=== PATIENT | male | born 1980 | race Caucasian/White ===

== ENCOUNTER 2025-03-30 19:08 | Emergency (ER) | payer OTHER, SELFPAY ==
[2025-03-30 19:11] VITALS: BP 143/82
[2025-03-30 19:37] LABS: Hematocrit 39.0 % (39.0-52.0); Hemoglobin 13.5 g/dL (13.0-18.0); Mean Corp Hgb Conc. 34.6 g/dL (33.0-37.0); Mean Corpuscular Volume 96.1 fL (80.0-94.0); Nucleated Red Blood Cells % 0 % (-); Platelet Count 215 10^3/uL (130-400); Red Cell Dist. Width 12.4 % (11.5-14.5)
[2025-03-30 19:46] LABS: ALT (SGPT) 29 U/L (0-50); AST (SGOT) 31 U/L (17-59); Albumin 4.5 g/dl (3.5-5.0); Alkaline Phosphatase 61 U/L (38-126); Calcium 9.3 mg/dl (8.4-10.2); Carbon Dioxide 28 mmol/L (22-30); Chloride 103 mmol/L (98-107); Glucose 109 mg/dl (70-99); Potassium 4.3 mmol/L (3.5-5.1); Sodium 136 mmol/L (135-145); Total Protein 7.3 g/dl (6.3-8.2); eGFR > 60.00
[2025-03-30 19:56] LABS: Blood Urea Nitrogen 19 mg/dl (9-20)
[2025-03-30 19:58] LABS: Troponin I < 0.012 ng/ml
--- NOTE | 2025-03-30 22:29 | ED.GENMED ---
History of Present Illness
General
Chief Complaint: Chest Pain
Source: patient
Exam Limitations: none
Time Seen by Provider: 03/30/25 22:28
History of Present Illness
History of Present Illness:
44-year-old male with a episode of chest tightness some shortness of breath and nausea after exercising early this morning. Has not felt quite right all day although the symptoms were at their maximum for 20 to 30 minutes. No pleuritic pain. No
shearing back pain. No history of similar episodes.
Past History
Past History
ED Past Medical History: Other (Lyme disease)
Social History
Tobacco: Non-smoker
Personal: Single
Employment: Employed
Review of Systems
Review of Systems
All Other Systems: Not applicable
Constitutional: Denies fever
Respiratory: Reports no symptoms
ABD/GI: Reports no symptoms
Phy Exam
Physical Exam
Physical Exam:
GENERAL: Alert and oriented in no apparent distress
EYE: Orbits normal.
NECK: Supple, no significant adenopathy.
ENT: Pharynx without erythema
CARDIAC: Regular rate and rhythm without any obvious murmurs.
LUNGS: Clear breath sounds,normal
ABDOMEN: Soft, without focal tenderness or distention
NEUROLOGICAL: Alert and oriented , grossly non-focal
SKIN: Warm and dry, no rash or lesion, no discoloration, skin intact.
MUSCULOSKELETAL: No edema,no deformity.Good color
PSYCH: Normal and appropriate interaction.
Course
Orders/Labs/Results
Orders:
Orders
03/30/25 19:11
EKG [Electrocardiogram (*1)] Urgent
Reason for Study: Chest Pain
EKG- Treatment ONCE
03/30/25 19:25
Complete Blood Count/With Diff Urgent
Comprehensive Metabolic Panel Urgent
Troponin I Urgent
03/30/25 20:46
Chest [CR Chest - 2 Views ] Urgent
Comment:
Reason For Exam: chest pain
03/30/25 22:39
CT Chest PE Study Urgent
Comment:
Reason For Exam: Chest pain short of breath nausea
IV Insert/Care/Rem.- Treatment PRN
0.9% Sodium Chloride 500 ml [Nss] 500 ml IV BOLUS
03/30/25 22:49
Electrocardiogram (*1) Stat
Reason for Study: Other
Other Reason for Exam: chest pain
EKG- Treatment ONCE
03/30/25 23:11
Troponin I Urgent
03/31/25 00:48
Aspirin Chewable [Low Strength Aspirin] 324 mg PO NOW STA
Abnormal Lab Results
03/30/25
19:25
RBC 4.06 L 10^6/uL
(4.70-6.10)
MCV 96.1 H fL
(80.0-94.0)
MCH 33.3 H pg
(27.0-31.0)
Absolute Monos (auto) 0.8 H 10^3/uL
(0.1-0.6)
Monocytes % 10.6 H %
(1.7-9.3)
Glucose 109 H mg/dl
(70-99)
03/30/25 19:25
03/30/25 19:25
Vital Signs
Initial and Last Documented VS:
Initial Vital Signs
Temp Pulse Resp BP Pulse Ox
98.5 F 56 18 143/82 99
03/30/25 19:11 03/30/25 19:11 03/30/25 19:11 03/30/25 19:11 03/30/25 19:11
Last Documented Vital Signs
Temp Pulse Resp BP Pulse Ox
98.5 F 74 16 121/76 96
03/30/25 19:11 03/31/25 00:26 03/31/25 00:26 03/31/25 00:26 03/30/25 23:30
*Radiology
Radiology exam reviewed: preliminary read by ED provider (Negative chest x-ray) and radiology read reviewed (Negative CT chest)
*Pulse Oximetry
SaO2: 99
Oxygen Mode of Delivery: Room air
Patient hypoxic: no
*EKG
Interpreted by ED Provider?: Yes
Interpretation: abnormal
Heart Rate: 63
Rate: normal
Rhythm: sinus
[place]: normal axis
Interval: normal interval
QRS Pattern: normal QRS
Ischemia: non-specific ST changes
Update Note
Update Note:
0043... Patient essentially feels well at this time. However with previous stress test showing ischemia, nonspecific EKG changes, exertional symptoms and family history will hold overnight for cardiology to see in a.m.
ED Attending Note
-
Portions of this chart may have been created with voice recognition software.� Occasional wrong word or��sound alike� substitutions may have occurred due to the inherent limitations of voice recognition software.
Discharge Plan
Departure
Prescriptions:
No Action
No Current Medications
0
Referrals:
Omega Jacobo MD [Family Provider, Internal Medicine]
Interventions
Interventions:
*Risk Screen - Suicide Last Done: 03/30/25 19:11
*General Assessment Last Done: 03/30/25 19:11
*Neglect/Abuse Screening Last Done: 03/30/25 19:11
ED- Cardiac Assessment Last Done: 03/30/25 23:23
Discharge Date and Time
Print Language: IRISH
[2025-03-30 23:00] VITALS: BP 118/79
[2025-03-30] MEDS: NSS 500 IV (23:16)
[2025-03-30 23:46] LABS: Troponin I < 0.012 ng/ml
[2025-03-31] VITALS (12 sets, daily range): BP systolic 100–129; BP diastolic 64–91; BMI 25.0
[2025-03-31] MEDS: LOW STRENGTH ASPIRIN 324 MG PO (01:00)
--- NOTE | 2025-03-31 09:26 | CON.CAR ---
Addendum entered and electronically signed by Gabe Kumar MD 03/31/25 09:58:
I saw and examined the patient.
The resident's note was reviewed and I agree with the note.
Comment:
44-year-old man with bicuspid aortic valve, frequent PACs, and family history of coronary artery disease who presents for chest pain. Patient reports that yesterday after strength training at the gym, he had an episode of nonradiating chest
pressure and nausea that lasted for about 20 minutes. He then felt 'off' for the rest of the day. Finally presented to the ED at his 's recommendation. In the ER, labs were notable for negative troponin x 2. I personally reviewed his ECG
which shows normal sinus rhythm with PACs and T wave inversions in the inferolateral leads (slightly worse than prior). I also personally reviewed his CT PE which showed no pulmonary embolism, scant coronary artery calcification, and mild
calcification of his aortic valve. At the time of my interview, he is completely chest pain-free. His chest pain resolved while he was in the ER waiting room it has not recurred. He is a non-smoker. He has a family history of father with [place] in
his late 50s; paternal grandfather and uncle also had CAD. Of note, he had a stress echocardiogram and TTE in 2020. Stress echocardiogram showed no echocardiographic evidence of ischemia and ST depressions by ECG. TTE showed normal LVEF and
bicuspid aortic valve with mild aortic regurgitation.
Physical exam: Regular rate and rhythm, no murmurs, clear lungs, no lower extremity edema
Chest pain: Very low suspicion for ACS given age, lack of risk factors, and hours of symptoms with negative troponin x2. He is pain-free at this time. Given his family history of coronary artery disease, I would recommend updating a stress
echocardiogram as an outpatient. I have contacted our office to arrange this. We also discussed return precautions that would warrant ER evaluation.
Bicuspid aortic valve: Mild aortic regurgitation on echocardiogram in 2020. We should update this. Our office will arrange.
He is okay for discharge from a cardiology standpoint. We will arrange cardiovascular testing as above and follow-up in our office.
Original Note:
Consultation
Consultation Request
Date/Time Consultation Requested: 03/31/2025
Date/Time Consultation Performed: 03/31/2025
Requesting Provider: Antoine Hayes
Performing Provider: Gabe Kumar
Reason for Consultation: Chest Pain
Medical History
-
Chief Complaint: Chest pain
History of Present Illness:
Antoine is a 44 year old man with a past medical history of bicuspid aortic valve, PACs and PVCs on outpatient Holter Monitoring and normal TTE/Stress Echo in 2020 who presented with symptoms of chest pain/pressure.
he reports that he went to the gym in the morning of 03/30 and went about his usual workout without symptoms. Towards the end of the workout he developed central, nonradiating chest pressure/pain and nausea. The pain did not radiate. He had no
vomiting. There was no light headedness, dizziness, palpitations, syncope. He left the gym, went home, made and ate breakfast without issue, and continued about his work day. He reports that he felt some lingering discomfort in his chest throughout
the day, but was unsure whether it was genuinely there or if he may have just been nervous about it. He has no prior chest trauma. There was no pleuritic component. He spoke to his when she got home and they decided he should come to the ED for
further eval to be safe. He takes no medications and no special supplements other than protein powder. He has never used performance enhancing drugs. He has a strong family history of CAD (Father with CAD and stenting in 50s, uncle from [place] in
50s, grandfather had CAD/[place]). He smoked cigarettes in his 20-30s socially, and has not smoked in over 10 years. He drinks roughly 4 beers per week, usually socially and on weekends.
In the ED he was given IVF and Aspirin 324mg. ECG showed sinus bradycardia with sinus arrhythmia. Troponins were negative. CBC and CMP were unremarkable. CXR and CT PE study showed no evidence of PE.
Patient was resting comfortably in bed without acute complaints when seen. He reports the chest discomfort subsided completely while in the waiting room prior to getting a room in the ED.
Past Medical History
Past Medical History: Other (see hpi)
Past Surgical History: Orthopedic (R knee)
Social History
Tobacco: Former Smoker
Alcohol: Occasional
Drug: None
Personal:
Living: With Family
Employment: Employed
Family History
Family History: Early CAD and CAD
Allergies / Home Medications
Allergy/AdvReac Type Severity Reaction Status Date / Time
codeine (Codeine) Allergy Unknown Unknown Verified 03/30/25 19:19
�Medication �Instructions �Recorded �Confirmed �Type
No Meds [No Current Medications] 03/31/25 03/31/25 History
Review of Systems
-
History Source: Patient
All other systems: Negative unless noted
Physical Exam
Vital Signs
Temp Pulse Resp BP Pulse Ox
97.8 F 67 21 110/64 99
03/31/25 07:15 03/31/25 08:15 03/31/25 08:15 03/31/25 08:00 03/31/25 08:15
Lab Results
03/30/25 19:25
03/30/25 19:25
Troponin I < 0.012 ng/ml 03/30/25 23:11
Physical Exam
General: Well Developed, Well Nourished, No Apparent Distress and Comfortable
HEENT: Normocephalic, Anicteric, Moist Mucous Membranes and Atraumatic
Respiratory: Clear and Non Labored Respirations; Negative Wheezes, Crackles or Rhonchi
Cardiac: S1/S2 and Irregular Rhythm; Negative Murmur or Rub
Breast: N/A
GI: Soft, Non Tender, Non Distended and Normal Bowel Sounds
Genito-urinary: No Costovertebral Tender
Musculoskeletal: No Clubbing, No Cyanosis and No Edema
Skin: Warm and Dry
Neuro: AO x 3
Psych: Calm
Impression / Plan
-
Antoine is a 44 year old man with a past medical history of bicuspid aortic valve, PACs and PVCs on outpatient Holter Monitoring and normal TTE/Stress Echo in 2020 who presented with symptoms of chest pain/pressure.
#Atypical Chest Pain, resolved
#H/o of Bicuspid Aortic Valve
#H/o PACs/PVCs
- No findings at this time to suggest ACS as an etiology of patient's chest pain
- Last outpatient follow up/cardiac testing was in 2020
- Will schedule with our office for repeat Stress Echo as well as TTE for Bicuspid valve
- Will schedule f/u appt in 4-6 weeks with out office for continued follow up, lab testing (lipids, etc.)
== END 2025-03-31 11:28 | disposition home or self-care (01) ==
LOC: EMR 19:08
PROVIDERS: EMERGENCY PHYSICIAN Emergency Medicine; FAMILY PHYSICIAN Internal Medicine
DX: R07.9 Chest pain, unspecified (principal); I49.1 Atrial premature depolarization; R00.1 Bradycardia, unspecified; I35.1 Nonrheumatic aortic (valve) insufficiency; Q23.81 Bicuspid aortic valve; Z87.891 Personal history of nicotine dependence; Z82.49 Family history of ischemic heart disease and other diseases of the circulatory system
CPT/HCPCS: 99284; 96360; 71046; 71275; 80053; 84484; 85025; 93005; Q9967

== ENCOUNTER → 2025-04-08 15:01 | Outpatient (REF) | payer OTHER, SELFPAY | LOC: HWRCS 15:01 | PROVIDERS: ATTENDING PHYSICIAN Student in an Organized Health Care Education/Training Program; FAMILY PHYSICIAN Physician Assistant Medical | DX: R53.83 Other fatigue (principal); R07.89 Other chest pain; R94.31 Abnormal electrocardiogram [ECG] [EKG] | CPT/HCPCS: 93306 ==

== ENCOUNTER → 2025-04-13 08:17 | Outpatient (REF) | payer OTHER, SELFPAY | LOC: RCS 08:17 | PROVIDERS: ATTENDING PHYSICIAN Student in an Organized Health Care Education/Training Program; FAMILY PHYSICIAN Physician Assistant Medical | DX: R53.83 Other fatigue (principal); R07.89 Other chest pain; R94.31 Abnormal electrocardiogram [ECG] [EKG] | CPT/HCPCS: 93017; 93350 ==